=== PATIENT | female | born 1955 | race Caucasian/White ===

== ENCOUNTER 2017-06-25 05:48 | Day surgery (SDC) | payer OTHER ==
[2017-06-25] VITALS (18 sets, daily range): BP systolic 131–169; BP diastolic 63–111; PULSE 61–93; RESP 13–32; Ht 161.3 cm; Wt 85.7 kg
[~2017-06-25] VITALS: Ht 161.3 cm; Wt 85.7 kg
[~2017-06-25 05:48] MED LIST: CLON2TAB3 PO; DESV50TA4 PO; DILT60TA29 PO; HYDR-3012 PO; LOSA1TAB19 PO; OXYC1TAB9 PO; TIZA4CAP6 PO; [UNRECOGNIZED DRUG - CODE]
--- NOTE | 2017-06-25 06:28 | HPN ---
Date/Time of Note Date/Time of Note DATE: 06/25/17 TIME: 06:27 Interval H&P Admission Note Pt. seen H&P reviewed: Systems changes noted below Patient complaining of slightly decreased sensation to light touch over the left dorsum, medial and plantar aspect over the past 2 days. Otherwise no other system changes STEFANIA RICE MD Jun 25, 2017 06:28
[2017-06-25] MEDS ORDERED: morphine 2 MG INJ IV PRN (06:30)
[2017-06-25] MEDS ORDERED: POLYMYXIN/BACITRACIN 1L IRRIG ONE (06:51)
[2017-06-25] MEDS ORDERED: HEPARIN 1000 UNITS/ML 10 ML INJ ONE (06:58)
[2017-06-25] MEDS ORDERED: SODIUM CL BACTERIOSTATIC 30 ML INJ ONE (06:58)
[2017-06-25] MEDS ORDERED: GABA-526 PO (07:14)
[2017-06-25] MEDS ORDERED: FLUO60OI5 TOP (07:14)
[2017-06-25] MEDS ORDERED: COLC0.6C PO (07:14)
[2017-06-25] MEDS ORDERED: AMIT25TA9 PO (07:14)
[2017-06-25] MEDS ORDERED: MEDICAL MARIJUANA (07:14)
[2017-06-25] MEDS ORDERED: NEBI10TA2 PO (07:14)
[2017-06-25] MEDS ORDERED: AMLO-147 PO (07:14)
[2017-06-25] MEDS ORDERED: BUTA-249 PO (07:14)
[2017-06-25] MEDS ORDERED: MISO200T3 PO (07:14)
[2017-06-25] MEDS ORDERED: CALCIPOTRIENE TOP (07:14)
[2017-06-25] MEDS ORDERED: OMEP20CA16 PO (07:14)
[2017-06-25] MEDS ORDERED: ACET1TAB40 PO (07:14)
[2017-06-25] MEDS ORDERED: DIPH25CA6 PO (07:14)
[2017-06-25] MEDS ORDERED: VENL50TA2 PO (07:14)
[2017-06-25] MEDS ORDERED: MELO7.5O PO (07:14)
[2017-06-25] MEDS ORDERED: LIDOCAINE 2% (SDV) 5 ML INJ ONE (07:32)
[2017-06-25] MEDS ORDERED: PROPOFOL 20 ML ONE (07:32)
[2017-06-25] MEDS ORDERED: ROPIVACAINE 0.5 % 30 ML VIAL ONE (07:32)
[2017-06-25] MEDS ORDERED: CEFAZOLIN 1 GM INJ ONE (08:06)
[2017-06-25] MEDS ORDERED: CA CHLORIDE 10% 10 ML SYRINGE ONE (08:13)
[2017-06-25] MEDS ORDERED: THROMBIN 5000 UNIT VIAL ONE (08:13)
[2017-06-25] MEDS ORDERED: ONDANSETRON 4 MG INJ ONE (09:19)
[2017-06-25] MEDS ORDERED: METOCLOPRAMIDE 10 MG INJ ONE (09:19)
[2017-06-25] MEDS ORDERED: NEOMYC/POLYMYX/BACIT 30 GM OINT ONE (09:42)
[2017-06-25] MEDS ORDERED: MIDAZOLAM 1 MG/ML 2 ML INJ IV PRN (10:00)
[2017-06-25] MEDS ORDERED: ONDANSETRON 4 MG INJ IV PRN (10:00)
[2017-06-25] MEDS ORDERED: FENTAnyl 50 MCG/ML VIAL IV PRN ×3 (10:00)
[2017-06-25] MEDS ORDERED: HYDROmorphONE (0.2 MG/ML) 10ML SYG IV PRN ×2 (10:00)
[2017-06-25] MEDS ORDERED: METOCLOPRAMIDE 10 MG INJ IV PRN (10:00)
[2017-06-25] MEDS ORDERED: EPHEDrine SULFATE 50 MG/5 ML SYG IV PRN (10:00)
[2017-06-25] MEDS ORDERED: DIPHENHYDRAMINE 50 MG INJ IV PRN (10:00)
[2017-06-25] MEDS ORDERED: hydrALAzine 20 MG INJ IV PRN (10:00)
[2017-06-25] MEDS ORDERED: OXYCODONE/ACETAMINOPHEN (5/325) TAB PO PRN ×2 (10:00)
[2017-06-25] MEDS ORDERED: MEPERIDINE 25 MG INJ IV PRN (10:00)
[2017-06-25] MEDS ORDERED: LABETALOL HCL 20MG INJ IV PRN (10:00)
[2017-06-25] MEDS: HYDROmorphONE (0.2 MG/ML) 10ML SYG IV PRN ×4 (10:23→11:17)
--- NOTE | 2017-06-25 10:54 | SIPON ---
Date/Time of Note Date/Time of Note DATE: 06/25/17 TIME: 10:48 Operative Report Preoperative Diagnosis Left fifth metatarsal base fracture nonunion Postoperative Diagnosis Left fifth metatarsal base fracture nonunion Operation/Procedure Performed Left fifth metatarsal base fracture nonunion open reduction internal fixation with allograft and bone marrow aspirate concentrate Aspiration of bone marrow aspirate Surgeon Heron Rice MD dental assistant instructor none Anesthesia: general, other (popliteal block) Estimated blood loss: minimal Transfusion Required none Specimen none Grafts/Implants [facility] 5th MT y Plate with screws [facility] Ignite Arteriocyte BMAC Complications none HERON RICE MD Jun 25, 2017 10:54
--- NOTE | 2017-06-25 10:54 | SIPON ---
Date/Time of Note Date/Time of Note DATE: 06/25/17 TIME: 10:48 Operative Report Preoperative Diagnosis Left fifth metatarsal base fracture nonunion Postoperative Diagnosis Left fifth metatarsal base fracture nonunion Operation/Procedure Performed Left fifth metatarsal base fracture nonunion open reduction internal fixation with allograft and bone marrow aspirate concentrate Aspiration of bone marrow aspirate Surgeon Heron Rice MD mortgage loan assistant none Anesthesia: general, other (popliteal block) Estimated blood loss: minimal Transfusion Required none Specimen none Grafts/Implants [facility] 5th MT y Plate with screws [facility] Ignite Arteriocyte BMAC Complications none HERON RICE MD Jun 25, 2017 10:54
--- NOTE | 2017-06-25 10:54 | SIPON ---
Date/Time of Note Date/Time of Note DATE: 06/25/17 TIME: 10:48 Operative Report Preoperative Diagnosis Left fifth metatarsal base fracture nonunion Postoperative Diagnosis Left fifth metatarsal base fracture nonunion Operation/Procedure Performed Left fifth metatarsal base fracture nonunion open reduction internal fixation with allograft and bone marrow aspirate concentrate Aspiration of bone marrow aspirate Surgeon Heron Rice MD workforce development assistant none Anesthesia: general, other (popliteal block) Estimated blood loss: minimal Transfusion Required none Specimen none Grafts/Implants [facility] 5th MT y Plate with screws [facility] Ignite Arteriocyte BMAC Complications none HERON RICE MD Jun 25, 2017 10:54
--- NOTE | 2017-06-25 10:55 | OPR ---
Date/Time of Note Date/Time of Note DATE: 06/25/17 TIME: 10:55 Operative Report Procedure Date: Jun 25, 2017 Preoperative Diagnosis Left fifth metatarsal base fracture nonunion Postoperative Diagnosis Left fifth metatarsal base fracture nonunion Operation/Procedure Performed Left fifth metatarsal base fracture nonunion open reduction internal fixation with allograft and bone marrow aspirate concentrate Aspiration of bone marrow aspirate Surgeon Heron Rice MD Spray Gun Operator none Anesthesia Type: general, other (popliteal block) Anesthesiologist: RADHA SHELL MD Tourniquet Time: 87 min at 250 mmg Hg Estimated Blood Loss: none Transfusion none Specimen none Grafts/Implants [employer] 5th MT y Plate with screws [employer] Ignite and augment Arteriocyte BMAC Tubes/Drains none Complications none Pt Condition Post Procedure: stable Disposition: PACU Indications Patient is a 61-year-old female with a greater than six-month history of 5th metatarsal base avulsion fracture. Patient has failed treatment of nonoperative management including boot and bone stimulator. Patient's ongoing nonunion was causing significant pain and difficulty ambulating. Given these complaints patient was indicated for surgical fixation of the nonunion. Risk Note: Patient was explained the risks and benefits of surgery and the patient's [place] language including not limited to infection, bleeding, injury to blood vessels, nerves, ligaments or tendons. Risks of anesthesia, deep vein thrombosis and need for reduce future surgery. Patient acknowledged these risk by signing the surgical consent form. Procedure Description Patient was met in the preoperative holding area and operative extremity was confirmed with the patient and consent the patient was marked accordingly. Patient was then brought back to the operative theater and placed supine on the operative table given preoperative antibiotics and preoperative anesthesia, including a regional block and general. Patient was then prepped and draped in normal sterile fashion and timeout was taken in all parties in the room agreed as correct patient, examining and procedure. Attention was initially turned to the left iliac crest and using a Jamshidi needle approximately 60 cc of bone marrow aspirate was removed from the left iliac crest and put on the back table for centrifugation with the Arteriocyte bone marrow aspirate machine. Attention was then turned to the left foot and Esmarch was used to bring the tourniquet up to 250 mmHg. Incision was made over the plantar lateral border of the fifth metatarsal along the globular skin base. Incision was brought down to the bone with care to avoid injury to any neurovascular structures. The nonunion site was identified and curetted and removed to fresh bony cortical edges. The canal was then opened up with K wire drilling of both the proximal and distal end of the fracture site. Then using a [employer] fifth metatarsal Y plate, the fracture was then spanned and reduced using the hook portion of the plate proximally. The plate was fixated distally initially and then gently tamped down and compressed distally to proximally and then packed with allograft mixed with Augment and bone marrow aspirate concentrate at the fracture site. the fracture site was Shown to be well reduced both the AP lateral and oblique positions. The wound was then gently irrigated and closed in layers with 2-0 Vicryl followed by 3-0 Monocryl and 4-0 nylon in vertical mattress fashion patient was then placed in a short leg splint that was well-padded with Xeroform followed by 4 x 4's and 5 ABDs and 5 Webrils. At the end of the case all sponge and needle counts were correct. Patient was taken to the PACU in a stable condition. HERON RICE MD Jun 25, 2017 10:55
--- NOTE | 2017-06-25 10:55 | OPR ---
Date/Time of Note Date/Time of Note DATE: 06/25/17 TIME: 10:55 Operative Report Procedure Date: Jun 25, 2017 Preoperative Diagnosis Left fifth metatarsal base fracture nonunion Postoperative Diagnosis Left fifth metatarsal base fracture nonunion Operation/Procedure Performed Left fifth metatarsal base fracture nonunion open reduction internal fixation with allograft and bone marrow aspirate concentrate Aspiration of bone marrow aspirate Surgeon Heron Rice MD Friction Saw Operator none Anesthesia Type: general, other (popliteal block) Anesthesiologist: RADHA SHELL MD Tourniquet Time: 87 min at 250 mmg Hg Estimated Blood Loss: none Transfusion none Specimen none Grafts/Implants [employer] 5th MT y Plate with screws [employer] Ignite and augment Arteriocyte BMAC Tubes/Drains none Complications none Pt Condition Post Procedure: stable Disposition: PACU Indications Patient is a 61-year-old female with a greater than six-month history of 5th metatarsal base avulsion fracture. Patient has failed treatment of nonoperative management including boot and bone stimulator. Patient's ongoing nonunion was causing significant pain and difficulty ambulating. Given these complaints patient was indicated for surgical fixation of the nonunion. Risk Note: Patient was explained the risks and benefits of surgery and the patient's [place] language including not limited to infection, bleeding, injury to blood vessels, nerves, ligaments or tendons. Risks of anesthesia, deep vein thrombosis and need for reduce future surgery. Patient acknowledged these risk by signing the surgical consent form. Procedure Description Patient was met in the preoperative holding area and operative extremity was confirmed with the patient and consent the patient was marked accordingly. Patient was then brought back to the operative theater and placed supine on the operative table given preoperative antibiotics and preoperative anesthesia, including a regional block and general. Patient was then prepped and draped in normal sterile fashion and timeout was taken in all parties in the room agreed as correct patient, examining and procedure. Attention was initially turned to the left iliac crest and using a Jamshidi needle approximately 60 cc of bone marrow aspirate was removed from the left iliac crest and put on the back table for centrifugation with the Arteriocyte bone marrow aspirate machine. Attention was then turned to the left foot and Esmarch was used to bring the tourniquet up to 250 mmHg. Incision was made over the plantar lateral border of the fifth metatarsal along the globular skin base. Incision was brought down to the bone with care to avoid injury to any neurovascular structures. The nonunion site was identified and curetted and removed to fresh bony cortical edges. The canal was then opened up with K wire drilling of both the proximal and distal end of the fracture site. Then using a [employer] fifth metatarsal Y plate, the fracture was then spanned and reduced using the hook portion of the plate proximally. The plate was fixated distally initially and then gently tamped down and compressed distally to proximally and then packed with allograft mixed with Augment and bone marrow aspirate concentrate at the fracture site. the fracture site was Shown to be well reduced both the AP lateral and oblique positions. The wound was then gently irrigated and closed in layers with 2-0 Vicryl followed by 3-0 Monocryl and 4-0 nylon in vertical mattress fashion patient was then placed in a short leg splint that was well-padded with Xeroform followed by 4 x 4's and 5 ABDs and 5 Webrils. At the end of the case all sponge and needle counts were correct. Patient was taken to the PACU in a stable condition. HERON RICE MD Jun 25, 2017 10:55
--- NOTE | 2017-06-25 12:12 | RADRPT ---
PROCEDURE: Intraoperative imaging of the left foot with fluoroscopy. CLINICAL INDICATION: Left foot pain. Intraoperative. TECHNIQUE: Images of the left foot were obtained in the operating room with an image intensifier. No radiologist was in attendance. Fluoroscopy time is 28 seconds and 4 images were obtained. COMPARISON: No prior study is available for comparison. FINDINGS: Images demonstrate surgical instruments overlying the base of the fifth metatarsal and subsequent fi xation of the base of the fifth metatarsal fracture with a plate and 4 screws. Alignment is satisfac tory. IMPRESSION: 1. Intraoperative imaging of the left foot. RPTAT: QQ .Abebe Pena MD, MD Date Time Electronically viewed and signed by .Abebe Pena MD, on 06/25/2017 12:12 .R/
== END 2017-06-25 12:39 | disposition home or self-care (01) ==
LOC: SDS 05:48
PROVIDERS: ATTEND Orthopaedic Surgery
DX: S92.352K Displaced fracture of fifth metatarsal bone, left foot, subsequent encounter for fracture with nonunion (principal); F17.210 Nicotine dependence, cigarettes, uncomplicated; E78.5 Hyperlipidemia, unspecified; I10 Essential (primary) hypertension; M06.9 Rheumatoid arthritis, unspecified; E66.9 Obesity, unspecified; Z68.32 Body mass index [BMI] 32.0-32.9, adult; Z86.718 Personal history of other venous thrombosis and embolism; Z86.711 Personal history of pulmonary embolism; X58.XXXD Exposure to other specified factors, subsequent encounter
CPT/HCPCS: 28322; 73630; 86999; C1713; J0360; J0690; J1170; J1644; J2405; J2765; J2795; Z7512; Z7610